=== PATIENT | female | born 1995 | race Caucasian/White ===

== ENCOUNTER 2019-06-27 12:05 | Emergency (ER) | payer SELFPAY ==
[~2019-06-27] VITALS: Ht 154.9 cm; Wt 52.7 kg
[2019-06-27 12:17] VITALS: BP 120/78
--- NOTE | 2019-06-27 13:49 | NUR ---
PATIENT LEFT WITHOUT BEING SEEN BY DR. ORTIZ. NO FURTHER CARE PROVIDED FOR PATIENT.
--- NOTE | 2019-06-27 13:50 | NUR ---
CALLED FOR PT IN THE LOBBY, NO RESPONSE.
--- NOTE | 2019-06-27 14:04 | NUR ---
PT CALLED IN LOBBY NO ANSWER.
== END 2019-06-27 13:49 | disposition left against medical advice (07) ==
LOC: MED 12:05
DX: N75.0 Cyst of Bartholin's gland (principal); Z53.21 Procedure and treatment not carried out due to patient leaving prior to being seen by health care provider

== ENCOUNTER 2019-06-28 09:38 | Emergency (ER) | payer SELFPAY ==
[~2019-06-28] VITALS: Ht 154.9 cm; Wt 52.7 kg
[2019-06-28 09:50] VITALS: BP 132/68
--- NOTE | 2019-06-28 09:56 | NUR ---
REFERRED BY [facility] W/ C/O CYST OF [place]THOLIN[place]S GLAND ON HER RT PERINEAL AREA SINCE YESTERDAY W/ PAIN 08/02. PRESCRIBED W/ METRONIDAZOLE. LWBS YESTERDAY. PATIENT STATES PAIN OF 8/10 AT THIS TIME. PATIENT POSITIONED FOR COMFORT; HOB ELEVATED; BEDRAILS UP X1; BED DOWN. ER MD MADE AWARE OF PT STATUS.
--- NOTE | 2019-06-28 09:57 | NUR ---
Patient ambulated to bed 12. RN evaluating patient at bedside.
--- NOTE | 2019-06-28 09:58 | NUR ---
PT AMBULATED TO BATHROOM WITH STEADY GAIT.
--- NOTE | 2019-06-28 10:09 | NUR ---
Dr. Brown evaluating patient at bedside.
--- NOTE | 2019-06-28 11:26 | NUR ---
DR. MCNAIR EVALUATING PATIENT AT BEDSIDE.
--- NOTE | 2019-06-28 11:28 | NUR ---
PRESENT AT BEDSIDE WITH DR. MCNAIR FOR PELVIC EXAM.
--- NOTE | 2019-06-28 11:30 | NUR ---
Dr. Brown re-evaluating patient at bedside.
--- NOTE | 2019-06-28 11:50 | NUR ---
WAITING FOR EXCUSE FROM WORK NOTE.
[2019-06-28 12:05] VITALS: BP 122/76
--- NOTE | 2019-06-28 12:05 | NUR ---
Patient discharged with v/s stable. Written and verbal after care instructions given and explained. Patient alert, oriented and verbalized understanding of instructions. Ambulatory with steady gait. All questions addressed prior to discharge. ID band removed. Patient advised to follow up with PMD. Rx of PREDNISONE, MOTRIN, AND KEFLEX given. Patient educated on indication of medication including possible reaction and side effects. Opportunity to ask questions provided and answered.
== END 2019-06-28 12:05 | disposition home or self-care (01) ==
LOC: MED 09:38
DX: N90.7 Vulvar cyst (principal)
CPT/HCPCS: 81002; 81025; 99283